=== PATIENT | female | born 1945 | race Caucasian/White ===

== ENCOUNTER → 2017-05-07 | Outpatient (CLI) | payer OTHER, MEDICARE | END | disposition home or self-care (01) | LOC: C.PAPS 13:24 | PROVIDERS: ATTEND Obstetrics & Gynecology | DX: Z12.4 Encounter for screening for malignant neoplasm of cervix (principal) ==

== ENCOUNTER → 2017-11-12 | Day surgery (SDC) | payer OTHER, MEDICARE ==
[2017-10-30 09:54] VITALS: Ht 157.5 cm; Wt 61.4 kg
[~2017-11-12] VITALS: Ht 157.5 cm; Wt 61.4 kg
[~2017-11-12] MED LIST: ASPI81TA28 PO; CALC600T37 PO; CHOL1CAP30 PO; COEN100C7 PO; IBUP-1050 PO; LIDOCAINE HCL 2% 2 ML VIAL (20MG/ML) ONE; LISI40TA PO; MAGN250T22 PO; MULT-610 PO; OMEG10007 PO; PROPOFOL IV EMULSION 10 MG/ML 20 ML VIAL IV ONE; SENN-65 PO; VTMD400
[2017-11-12 11:40] VITALS: TEMP 36.7
--- NOTE | 2017-11-12 12:02 | Endo History and Physical ---
History & Physical Date of Service: Nov 12, 2017. Chief Complaint: ABNORMAL BARIUM SWALLOW, DYSPHAGIA Referring Physician: IDALIA PATTON History of Present Illness 72 yo CF who presents for EGD secondary to esophageal dysphagia and abnormal barium swallow. Past Surgical History Hx Cardiac Surgery: No Hx Internal Defibrillator: No Hx Pacemaker: No Hx Abdominal Surgery: No Hx of Implantable Prosthesis: No Hx Post-Op Nausea and Vomiting: No Hx Cancer Surgery: No Hx Thoracic Surgery: No Hx Orthopedic: No Hx Urinary Tract Surgery: No Family History None Social History Smoking Status: Never Smoker Hx Substance Use: No Hx Alcohol Use: Yes (RARELY) Allergies Coded Allergies: No Known Allergies (Unverified , 11/12/17) Current Medications Reported Home Medications Medications Dose Route/Sig Max Daily Dose Days Date Category Vitamin D3 (Cholecalciferol) 400 Inter.unit Tab 10/30/17 Reported Vitamin D3 (Cholecalciferol) 400 Unit Cap 400 Units PO QPM 10/30/17 Reported Senokot S (Senna/Docusate Sodium) 1 Tab Tab 1 Tab PO HS PRN 10/30/17 Reported Zestril (Lisinopril) 40 Mg Tab 40 Mg PO QAM 10/30/17 Reported Advil (Ibuprofen) 200 Mg Tab 400 Mg PO TID PRN 10/30/17 Reported [place]-3 (Fish Oil) 1 Ea Cap 1 Cap PO BID 10/30/17 Reported Coq10 (Coenzyme Q10 (Ubidecarenone)) 100 Mg Cap 100 Mg PO QAM 10/30/17 Reported Centrum Adults (Multiple Vitamins W/ Minerals) 1 Tab Tab 1 Tab PO QAM 10/30/17 Reported Calcium 600 Mg Tab 600 Mg PO BID 10/30/17 Reported Aspirin Ec (Aspirin) 81 Mg Tab 81 Mg PO QPM 10/30/17 Reported Vital Signs Weight (Kilograms): 61.36 Height (Feet): 5 Height (Inches): 2 Date Time Temp Pulse Resp B/P (MAP) Pulse Ox O2 Delivery O2 Flow Rate FiO2 11/12/17 11:40 36.7 88 20 161/81 (107) 98 Room Air Physical Exam General Appearance: WD/WN, no apparent distress Respiratory/Chest: Auscultation: breath sounds normal Cardiovascular: Heart Auscultation: RRR Abdomen: Bowel Sounds: normal Inspection & Palpation: soft, non-distended, no tenderness, guarding & rebound Assessment and Plan Assessment: 72 yo CF who presents for EGD secondary to esophageal dysphagia and abnormal barium swallow. Plan: Proceed with EGD.
--- NOTE | 2017-11-12 12:20 | GI REPORT ---
Procedure Date: 11/12/2017 11:50 AM Procedure: Upper GI endoscopy Indications: Dysphagia, Abnormal UGI series Medicines: Monitored Anesthesia Care Complications: No immediate complications. Estimated Blood Loss: Estimated blood loss: none. Procedure: Pre-Anesthesia Assessment: - Prior to the procedure, a History and Physical was performed, and patient medications and allergies were reviewed. The patient's tolerance of previous anesthesia was also reviewed. The risks and benefits of the procedure and the sedation options and risks were discussed with the patient. All questions were answered, and informed consent was obtained. Prior Anticoagulants: The patient has taken aspirin, last dose was 1 day prior to procedure. ASA Grade Assessment: III - A patient with severe systemic disease. After reviewing the risks and benefits, the patient was deemed in satisfactory condition to undergo the procedure. After obtaining informed consent, the endoscope was passed under direct vision. Throughout the procedure, the patient's blood pressure, pulse, and oxygen saturations were monitored continuously. The scope was introduced through the mouth, and advanced to the second part of duodenum. The upper GI endoscopy was accomplished without difficulty. The patient tolerated the procedure well. Findings: The esophagus was normal. A large hiatal hernia was present. The examined duodenum was normal. Impression: - Normal esophagus. - Large hiatal hernia. - Normal examined duodenum. - No specimens collected. Recommendation: - Resume previous diet. - Continue present medications. - Refer to a surgeon. - Return to primary care physician as previously scheduled. Rafael Suarez DO 11/12/2017 12:19:47 PM This report has been signed electronically. Note Initiated On: 11/12/2017 11:50 AM I attest to the content of the Intraoperative Record and orders documented therein, exceptions below
--- NOTE | 2017-11-12 12:20 | Discharge Instructions ---
Endoscopy Patient Instructions Date / Procedure(s) Performed Nov 12, 2017. EGD Allergy Information Coded Allergies: No Known Allergies (Unverified , 11/12/17) Discharge Date / Findings Nov 12, 2017. Large hiatal hernia Medication Instructions Stopped Medication(s): ASPIRIN 81MG 11/11/17 2300 OK to resume all medications today as prescribed Reported Home Medications Medications Dose Route/Sig Max Daily Dose Days Date Category Vitamin D3 (Cholecalciferol) 400 Inter.unit Tab 10/30/17 Reported Vitamin D3 (Cholecalciferol) 400 Unit Cap 400 Units PO QPM 10/30/17 Reported Senokot S (Senna/Docusate Sodium) 1 Tab Tab 1 Tab PO HS PRN 10/30/17 Reported Zestril (Lisinopril) 40 Mg Tab 40 Mg PO QAM 10/30/17 Reported Advil (Ibuprofen) 200 Mg Tab 400 Mg PO TID PRN 10/30/17 Reported [place]-3 (Fish Oil) 1 Ea Cap 1 Cap PO BID 10/30/17 Reported Coq10 (Coenzyme Q10 (Ubidecarenone)) 100 Mg Cap 100 Mg PO QAM 10/30/17 Reported Centrum Adults (Multiple Vitamins W/ Minerals) 1 Tab Tab 1 Tab PO QAM 10/30/17 Reported Calcium 600 Mg Tab 600 Mg PO BID 10/30/17 Reported Aspirin Ec (Aspirin) 81 Mg Tab 81 Mg PO QPM 10/30/17 Reported Provider Instructions Activity Restrictions - No exercising or heavy lifting for 24 hours. - Do not drink alcohol the day of the procedure. - Do not drive a car or operate machinery until the day after the procedure. - Do not make any important decisions or sign important papers in 24 hours after the procedure. Following Day: - Return to full activity which may include returning to work/school. Diet Start your diet with liquids and light foods (jello, soup, juice, toast). Then eat your usual diet if not nauseated. Treatment For Common After Affects For mild abdominal pain, bloating, or excessive gas: - Rest - Eat lightly - Lie on right side Follow-Up Information Follow-up with IDALIA PATTON as scheduled Anesthesia Information What You Should Know You have had a procedure that required some medicine to reduce anxiety and discomfort. This treatment is called moderate sedation. After receiving the treatment, you may be sleepy, but you will be able to breathe on your own. The effects of the treatment may last for several hours. Follow these instructions along with Activity/Diet recommendations noted above: * Do NOT do anything where dizziness or clumsiness would be dangerous. * Rest quietly at home today, then you can be up and about tomorrow. * Have a responsible person stay with you the rest of today. * You may have had an I.V. today. If so, you may take the dressing off later today. Recommendations Call your doctor if: * Trouble breathing * Continuous vomiting for more than 24 hours * Temperature above 101 degrees * Severe abdominal pain or bloating * Pain not relieved by pain medicine ordered * There is increased drainage or redness from any incision * A large amount of rectal bleeding greater than 2-3 tablespoons. (If you had a polyp/s removed or have hemorrhoids, a small amount of blood - from the rectum is to be expected.) * You have any unanswered questions or concerns. IN THE EVENT OF A SERIOUS EMERGENCY, GO TO THE NEAREST EMERGENCY ROOM Your discharge instructions were prepared by provider Rafael Suarez. Patient Instructions Signature Page Olga Lidia Pierce Patient (or Guardian) Signature/Date: I have read and understand the instructions given to me by my caregivers. Caregiver/RN/Doctor Signature/Date: The above-named patient and/or guardian has received patient instructions on this date. + Original Patient Signature Page (only) stays with chart. Please make copy for patient.
[2017-11-12 12:47] VITALS: BP 146/80; PULSE 75; O2SAT 97
--- NOTE | 2017-11-12 13:15 | Anesthesiology Progress Note ---
Anesthesia Post Op Note Date & Time Nov 12, 2017 at 13:15 Vital Signs Pain Intensity: 0 Vital Signs Past 12 Hours Date Time Temp Pulse Resp B/P (MAP) Pulse Ox O2 Delivery O2 Flow Rate FiO2 11/12/17 12:47 75 20 146/80 (102) 97 Room Air 11/12/17 12:36 84 20 150/69 (96) 97 Room Air 11/12/17 12:29 87 20 131/65 (87) 98 Room Air 11/12/17 12:23 81 20 132/69 (90) 99 Room Air 11/12/17 11:40 36.7 88 20 161/81 (107) 98 Room Air Notes Mental Status: alert / awake / arousable, participated in evaluation Pt Amnestic to Procedure: Yes Nausea / Vomiting: adequately controlled Pain: adequately controlled Airway Patency, RR, SpO2: stable & adequate BP & HR: stable & adequate Hydration State: stable & adequate Anesthetic Complications: no major complications apparent
== END | disposition home or self-care (01) ==
LOC: C.GI 11:05
PROVIDERS: ATTEND Internal Medicine
DX: R13.10 Dysphagia, unspecified (principal); R93.3 Abnormal findings on diagnostic imaging of other parts of digestive tract; K44.9 Diaphragmatic hernia without obstruction or gangrene; I10 Essential (primary) hypertension; Z79.82 Long term (current) use of aspirin; Z79.899 Other long term (current) drug therapy; M19.90 Unspecified osteoarthritis, unspecified site; Z90.89 Acquired absence of other organs; Z98.890 Other specified postprocedural states

== ENCOUNTER 2018-01-07 05:36 | Observation (INO) | payer OTHER, MEDICARE ==
[2017-12-29 15:21] VITALS: BMI 24.0
[~2018-01-07] VITALS: Ht 157.5 cm; Wt 61.4 kg
[2018-01-07] VITALS (9 sets, daily range): BP systolic 118–175; BP diastolic 58–81; PULSE 61–101; TEMP 36.6–36.8; O2SAT 93–99; Ht 157.5 cm; Wt 61.4 kg
[~2018-01-07 05:36] MED LIST changes: +ALUMSUS21 PO; -LIDOCAINE HCL 2% 2 ML VIAL (20MG/ML) ONE; -MAGN250T22 PO; +MAGNESIUM OXIDE PO; +POLY335019 PO; -PROPOFOL IV EMULSION 10 MG/ML 20 ML VIAL IV ONE; -VTMD400
[2018-01-07] MEDS ORDERED: LACTATED RINGER'S 1000ML 1,000 ML IV SCH (06:00)
[2018-01-07] MEDS ORDERED: LIDOCAINE HCL 2% JELLY 30 ML TUBE EXT ONE (06:44)
--- NOTE | 2018-01-07 06:50 | History & Physical Bridge Note ---
H&P Re-Evaluation Bridge Note: I have examined the patient, reviewed the History & Physical and in the interval since the performance of the History & Physical I have noted the following changes of clinical significance: No changes noted
[2018-01-07] MEDS ORDERED: PROPOFOL IV EMULSION 10 MG/ML 20 ML VIAL IV ONE (06:56)
[2018-01-07] MEDS ORDERED: FENTANYL CITRATE INJ 50 MCG/1 ML 2 ML VIAL ONE ×2 (06:56→10:50)
[2018-01-07] MEDS ORDERED: ROCURONIUM BROMIDE 10 MG/ML 5 ML VIAL IV ONE ×5 (06:56→09:07)
[2018-01-07] MEDS ORDERED: LIDOCAINE HCL 2% 2 ML VIAL (20MG/ML) ONE (06:56)
[2018-01-07] MEDS ORDERED: ALBUMIN HUMAN 5% 12.5 GM/250 ML VIAL IV ONE (07:10)
[2018-01-07] MEDS ORDERED: ACETAMINOPHEN 1000 MG/100 ML IV IV ONE (07:10)
[2018-01-07] MEDS ORDERED: CEFAZOLIN SOD 1000MG/7.5 ML IV PUSH IV ONE (07:26)
[2018-01-07] MEDS ORDERED: HYDROmorphone INJ 2 MG/ML SYR/VIAL ONE (08:02)
[2018-01-07] MEDS ORDERED: GLYCOPYRROLATE INJ 0.2 MG/ML VIAL ONE ×2 (08:38→10:14)
[2018-01-07] MEDS ORDERED: ONDANSETRON INJ 2 MG/ML 2 ML VIAL ONE (08:38)
[2018-01-07] MEDS ORDERED: DEXAMETHASONE SOD INJ 4 MG/ML VIAL ONE (08:38)
[2018-01-07] MEDS ORDERED: PHENYLEPHRINE 100MCG/ML 5ML SYR ONE (08:38)
[2018-01-07] MEDS ORDERED: EpHEDrine SULFATE 50MG/5ML SYR ONE (08:38)
[2018-01-07] MEDS ORDERED: NEOSTIGMINE METHYLSULFATE 5 MG/5 ML SYR ONE (10:14)
--- NOTE | 2018-01-07 10:21 | [facility] Post Operative Brief Note ---
Immediate Operative Summary Operative Date Jan 07, 2018. Pre-Operative Diagnosis Hiatal Hernia Post-Operative Diagnosis Same Procedure(s) Performed Robot Assisted Laparoscopic Charlette Fundoplication, Esophagogastroduodenoscopy Surgeon Dr Krishna Artist Blacksmith Surgeon(s) Froilan Falcon PA-C Estimated Blood Loss 10ml Findings Consistent with Post-Op Diagnosis Specimens None Anesthesia Type General
[2018-01-07] MEDS ORDERED: D5W AND 1/2NSS 1,000 ML IV SCH (10:35)
[2018-01-07] MEDS ORDERED: MoRPHine SULFATE 2 MG/ML CARP IV PRN (10:45)
[2018-01-07] MEDS ORDERED: ONDANSETRON INJ 2 MG/ML 2 ML VIAL IV PRN ×2 (10:45→11:15)
[2018-01-07] MEDS ORDERED: OXYCODONE HCL IR 5 MG TAB (IMMEDIATE RELEASE) PO PRN (10:45)
[2018-01-07] MEDS ORDERED: METOCLOPRAMIDE HCL INJ 5 MG/ML 2 ML VIAL ONE (10:52)
--- NOTE | 2018-01-07 11:08 | Anesthesiology Progress Note ---
Anesthesia Post Op Note Date & Time Jan 07, 2018 at 11:08 Vital Signs Pain Intensity: 4.0 Vital Signs Past 12 Hours Date Time Temp Pulse Resp B/P (MAP) Pulse Ox O2 Delivery O2 Flow Rate FiO2 01/07/18 11:00 61 16 131/67 100 Oxymask 7 01/07/18 10:50 60 16 127/63 100 Oxymask 7 01/07/18 10:41 36.7 62 16 157/80 100 Oxymask 7 01/07/18 06:01 36.7 79 20 175/81 Room Air Notes Mental Status: alert / awake / arousable, participated in evaluation Pt Amnestic to Procedure: Yes Nausea / Vomiting: adequately controlled Pain: adequately controlled Airway Patency, RR, SpO2: stable & adequate BP & HR: stable & adequate Hydration State: stable & adequate Anesthetic Complications: no major complications apparent
[2018-01-07] MEDS ORDERED: FENTANYL CITRATE INJ 50 MCG/1 ML 2 ML VIAL IV PRN (11:15)
[2018-01-07] MEDS ORDERED: ATROPINE SULFATE 0.1 MG/ML 5ML SYR IV PRN (11:15)
[2018-01-07] MEDS ORDERED: EpHEDrine SULFATE INJ 50 MG/ML AMP IV PRN (11:15)
[2018-01-07] MEDS ORDERED: HYDROmorphone INJ 0.5 MG/0.5 ML SYR IV PRN (11:15)
[2018-01-07] MEDS ORDERED: IV FLUIDS COMPLETED PRN (11:30)
--- NOTE | 2018-01-07 12:31 | OPERATIVE REPORT ---
DATE OF OPERATION: 01/07/2018 PREOPERATIVE DIAGNOSIS: Hiatal hernia with gastroesophageal reflux disease refractory to medical management. POSTOPERATIVE DIAGNOSIS: Same. PROCEDURES PERFORMED: 1. Robotic-assisted laparoscopic repair of hiatal hernia. 2. Placement of biologic patch over hiatal repair. 3. Toupet partial fundoplication. SURGEON: Nitish Krishna MD RECYCLING ATTENDANT: FANNY Wellington (MrGayle Falcon was present for the entire case. He was instrumental at the patient's bedside, changing instruments and placing and removing suture needles and closed the skin incisions at the conclusion of the case) ANESTHESIA: General anesthesia endotracheal intubation. INDICATION FOR PROCEDURE AND FINDINGS: Olga Lidia Pierce is a 72-year-old female who has a history of gastroesophageal reflux disease. She is a retired nurse and understands gastroesophageal reflux. She has been on multiple medications and she has not had response as she had hoped. She underwent an upper endoscopy by Dr. Rafael Suarez and had a large hiatal hernia. Also, on her barium swallow, she appeared to have some dysmotility. For this reason, I elected to proceed with a partial fundoplication. We discussed this in detail in the office. On 01/07/2018, the patient was brought to the operating room and underwent an uncomplicated repair. Her hiatal defect was repaired with 2 sutures and then I placed a biologic patch to reinforce this. It was a small 3 x 5 cm patch. I then did a Toupet partial fundoplication. I did an upper endoscopy at the conclusion of the case and this looked quite good. She tolerated it well. DESCRIPTION OF PROCEDURE: The patient was brought to the operating room and laid in the supine position. General anesthesia induced and endotracheal intubation was performed. After prepping and draping in the usual sterile fashion, calling appropriate timeout and giving prophylactic antibiotics, an incision was made in the midline a few centimeters above the umbilicus. A Veress needle was used to go through this and carbon dioxide was insufflated into the abdominal cavity. I then used a 5 mm port to go in the same space and with a 5 mm 30-degree scope, we were able to see there were no adhesions. I then placed an 8 mm scope in the mid clavicular line, right at the costal margin on the left and then also on the right, I did make it a few centimeters below the costal margin to get around the ligamentum teres. I then placed two 5 mm ports laterally, the left one for a robotic retractor and the right one for the liver retractor which would stay in place. We then docked the robot, placed the patient in a reverse Trendelenburg and then proceeded with the repair. Using a vessel sealer, I took down the short gastrics right away and went right down to the left crural area and freed up the esophagus nicely in the stomach. We were able to easily reduce the stomach. There really was not much of a sac. I then cleaned off the right crura without difficulty using a [place] bipolar dissector. I identified the vagus nerves. There really was not a sac to remove per se, we got plenty of esophagus into the abdominal cavity. Two 0 silk sutures were used in simple fashion to reapproximate the posterior crura nicely. We did not do it too tightly and left a small space posteriorly. I then took an OviTex absorbable mesh and cut it to 3.5. After we soaked this for several minutes, we had cut this in a U and then I used 2-0 Vicryl suture to suture in place to buttress the repair. It was not in contact at the esophagus. It was sutured to the more lateral crura on both sides. We had freed up plenty of space in the retroesophageal and gastric area and pulled the fundus of the stomach in a retroesophageal space. This sat very nicely under no tension. 2-0 silk sutures were used to anchor this to the anterior crura, esophagus and then to the fundus on the right side. I then took 2 more sutures down to ensure that we had at least 4 cm of esophageal length in the intra-abdominal side of the hiatus. We then put 3 more sutures on the left side of 2-0 silk, 1 to the crura into the esophagus and fundus and then 2 more to the fundus and the esophagus. This laid very nicely. We then undocked. I then removed all of our instruments and then we put the patient back in a supine position, I did an upper endoscopy. Upon placing the endoscope, this was done without difficulty and I really did not see much in the way of any esophageal strictures or abnormalities. I went into the stomach without difficulty. We were not very tight at the junction. I then retroflexed and it looked quite good, we had a good segment on the intra-abdominal aspect of the hiatus. We then filled the stomach with air and there was no bubbling down at the operative site. I then sucked this out and slowly removed the endoscope. I then scrubbed back in and we used 0 PDS to close the two 12 mm ports where the camera and the assistant scientist's port were. We then used 4-0 Monocryl in running continuous fashion to close the skin edges. She tolerated it very well and was extubated in the room without difficulty. We essentially had no blood loss. I attest to the content of the Intraoperative Record and any orders documented therein. Any exceptions are noted below. NEEL
[2018-01-07] MEDS: ACETAMINOPHEN IV 1,000 MG in EMPTY BAG 0 ML IV SCH ×2 (14:20→22:23)
[2018-01-07] MEDS: KETOROLAC TROMETHAMINE 15 MG/ML VIAL IV. SCH ×2 (14:20→22:32)
[2018-01-07] MEDS: METOCLOPRAMIDE HCL INJ 5 MG/ML 2 ML VIAL IV. SCH (18:33)
[2018-01-07] MEDS ORDERED: NURSING VERBAL MED ORDER ONE (21:00)
[2018-01-07] MEDS ORDERED: ASPIRIN 81 MG ECTAB PO SCH (21:00)
[2018-01-07] MEDS: DOCUSATE SODIUM 100 MG CAP PO SCH (22:31)
[2018-01-08] MEDS: METOCLOPRAMIDE HCL INJ 5 MG/ML 2 ML VIAL IV. SCH (01:51)
[2018-01-08 03:57] VITALS: BP 146/74; PULSE 85; TEMP 37; O2SAT 97
[2018-01-08 05:30] LABS: HEMATOCRIT 35.3 % (37-47); HEMOGLOBIN 11.9 g/dL (12.0-16.0); MEAN CELL VOLUME 95.7 fL (80-100); MEAN CORPUSCULAR HEMOGLOBIN 32.2 pg (25-34); MEAN CORPUSCULAR HGB CONC 33.7 g/dl (32-36); MEAN PLATELET VOLUME 10.1 fL (7.4-10.4); PLATELET COUNT 154 K/uL (130-400)
[2018-01-08 05:39] LABS: INR 1.1 (0.9-1.1); PTT PATIENT 26.8 SECONDS (21.0-31.0)
[2018-01-08] MEDS: KETOROLAC TROMETHAMINE 15 MG/ML VIAL IV. SCH (05:47)
[2018-01-08] MEDS: ACETAMINOPHEN IV 1,000 MG in EMPTY BAG 0 ML IV SCH (05:48)
[2018-01-08 06:02] LABS: CREATININE 0.78 mg/dl (0.60-1.20)
--- NOTE | 2018-01-08 06:13 | Discharge Instructions ---
Discharge Instructions Date of Service Jan 08, 2018. Admission Reason for Admission: Hiatal Hernia W/Gerd, Lower Esophageal Schatzki Ri Discharge Discharge Diagnosis / Problem: Hiatal Hernia W/Gerd Discharge Goals Goal(s): Decrease discomfort Activity Recommendations Activity Limitations: as noted below Lifting Limitations: no more than 10 pounds 1. Do not lift objects heavier than 10 pounds until cleared to do so by Dr. Krishna. 2. Do not drive until cleared to do so by Dr. Krishna. . Instructions / Follow-Up Instructions / Follow-Up 1. Office appointment with Dr. Krishna in 1 week. Office will call you with date and time of appointment. 2. Continue a liquid diet.. Do not eat any solid food that requires chewing until cleared to do so by Dr. Krishna. 3. You may remove dressings in 3 days and shower thereafter. No tub baths. Current Hospital Diet Patient's current hospital diet: Clear Liquid Diet Discharge Diet Recommended Diet: Full Liquid Diet Procedures Procedures Performed: Robot Assisted Laparoscopic Charlette Fundoplication, Esophagogastroduodenoscopy Pending Studies Studies pending at discharge: no Medical Emergencies . Who to Call and When: Medical Emergencies: If at any time you feel your situation is an emergency, please call 911 immediately. . Non-Emergent Contact Non-Emergency issues call your: Surgeon Call Non-Emergent contact if: you have a fever, your pain is not controlled, wound has increased drainage . "Provider Documentation" section prepared by Taj Falcon. .
[2018-01-08 07:49] VITALS: BP 160/74; PULSE 79; TEMP 36.9; O2SAT 94
--- NOTE | 2018-01-08 08:46 | DIAGNOSTIC IMAGING REPORT ---
(BARIUM SWALLOW) ESOPHAGUS CLINICAL HISTORY: 72 years-old Female with fundoplication . Status post fundoplication. TECHNIQUE: Barium contrast was administered to the patient under fluoroscopic examination. Multiple images were obtained and submitted for review. FLUOROSCOPY TIME: 0.4 minutes. 5 images were submitted. COMPARISON: None. FINDINGS: During deglutition, contrast material flowed freely through the cervical esophagus. No filling defect or mucosal abnormality is identified. No abnormal stricturing or mass effect is seen. The mid to distal esophagus is well coated and distended. No abnormal stricturing or mucosal abnormality is identified. No significant reflux identified. Status post fundoplication. Mild tertiary contractions of the distal esophagus. No evidence of contrast extravasation to suggest mucosal injury. IMPRESSION: 1. Status post fundoplication without evidence of contrast extravasation to suggest mucosal injury. 2. Mild tertiary contractions of the distal esophagus. The above report was generated using voice recognition software. It may contain grammatical, syntax or spelling errors. Electronically signed by: Felipe Echeverria M.D. 01/08/2018 8:45 AM Dictated Date/Time: 01/08/2018 8:41 AM
[2018-01-08] MEDS ORDERED: LISINOPRIL 40 MG TAB PO SCH (09:00)
[2018-01-08] MEDS ORDERED: ENOXAPARIN 40 MG/0.4 ML SYR SQ SCH (09:00)
[2018-01-08] MEDS ORDERED: CEROVITE ADV FORMULA TAB PO SCH (09:00)
[2018-01-08] MEDS: DOCUSATE SODIUM 100 MG CAP PO SCH (09:02)
[2018-01-08 11:29] VITALS: BP 152/78; PULSE 79
[2018-01-08 11:54] VITALS: BP 146/82; PULSE 79; TEMP 36.9; O2SAT 95
--- NOTE | 2018-01-08 12:36 | DISCHARGE SUMMARY ---
DISCHARGE DIAGNOSIS: Hiatal hernia with gastroesophageal reflux, unresponsive to medical therapy. 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 She was found to have a fairly large hiatal hernia on upper endoscopy. As stated, she was unresponsive to medical management. On 01/07/2018, I brought the patient to the operating room and did an uncomplicated robotic-assisted laparoscopic repair of her hiatal hernia and a Toupet partial fundoplication. I elected not to do a full Charlette wrap because the patient had some dysmotility of her esophagus. She did very well with the surgery without blood loss. She awakened from it without difficulty. She was a bit "shaky" overnight and her blood sugar was found to be a bit elevated; however, this settled down over the course of the night. The patient was ambulating in the hallway. She was tolerating liquids. A barium swallow done the following morning showed no evidence of extravasation. There is no evidence of reflux and flow went through the repair site quite nicely. Quite pleased with the fact that she has no symptoms of reflux and she feels better. She was discharged home on postop day 1. I will see her back in the office. She did not require pain medications and I told to resume her regular medications. We had a long talk about diet and restrictions including the fact that she may not eat anything until I see her back in the office and clear her. I will see her back next week. She is to stay on liquids.
[2018-01-08 12:40] VITALS: BP 146/82; PULSE 79; TEMP 36.9; O2SAT 95
== END 2018-01-08 14:06 | disposition home or self-care (01) ==
LOC: C.ACU 05:36 → C.MSN 06:43 → ENRESERV 11:08
PROVIDERS: ADMIT Surgery; ATTEND Surgery
DX: K21.9 Gastro-esophageal reflux disease without esophagitis (principal); K44.9 Diaphragmatic hernia without obstruction or gangrene; I10 Essential (primary) hypertension; M85.80 Other specified disorders of bone density and structure, unspecified site; E78.00 Pure hypercholesterolemia, unspecified; Z78.0 Asymptomatic menopausal state; Z90.89 Acquired absence of other organs; Z98.51 Tubal ligation status; Z80.0 Family history of malignant neoplasm of digestive organs; Z79.82 Long term (current) use of aspirin
CPT/HCPCS: 43282; S2900

== ENCOUNTER → 2018-04-22 | Outpatient (CLI) | payer OTHER, MEDICARE ==
--- NOTE | 2018-04-23 07:56 | MAMMOGRAPHY REPORT ---
BILATERAL DIGITAL SCREENING MAMMOGRAM TOMOSYNTHESIS WITH CAD: 04/22/2018 TECHNIQUE: The study was acquired using full field digital technology and interpreted from soft copy. Breast tomosynthesis in addition to standard 2D mammography was performed. Current study was also ev aluated with a Computer Aided Detection (CAD) system. COMPARISON: Comparison is made to exams dated: 02/07/2016 mammogram - [facility], , 12/11/2010 mammogram, 09/02/2012 mammogram, and 08/09/2014 mammogram - [facility]. BREAST COMPOSITION: There are scattered areas of fibroglandular density in both breasts. FINDINGS: No suspicious masses, calcifications, or areas of architectural distortion are noted in either breast . There has been no significant interval change compared to prior exams. IMPRESSION: ACR BI-RADS CATEGORY 1: NEGATIVE There is no mammographic evidence of malignancy. A 1 year screening mammogram is recommended.( [id number]) The patient will receive written notification of the results. Some breast cancers are not detected with mammography. A negative mammographic report should not diego y biopsy if a clinically suggestive mass is present. Rebecca Fam M.D. ah/:04/22/2018 10:33:21 Pit Furnace Operator: RT Ebenezer(Bandar)(M), [facility] letter sent: Normal 1/2 BI-RADS Code: ACR BI-RADS Category 1: Negative
== END | disposition home or self-care (01) ==
LOC: C.MAMM 09:45
PROVIDERS: ATTEND Obstetrics & Gynecology
DX: Z12.31 Encounter for screening mammogram for malignant neoplasm of breast (principal)